=== PATIENT | male | born 1990 | race Caucasian/White ===

== ENCOUNTER 2023-11-19 15:02 | Emergency (ER) | payer BC, SELFPAY ==
[2023-11-19 15:04] VITALS: BP 155/72
--- NOTE | 2023-11-19 15:52 | EDRN ---
Priyanka Lehman PA in to see pt at this time.
--- NOTE | 2023-11-19 15:52 | ED.GENMED ---
History of Present Illness
General
Chief Complaint: Musculo-Skeletal Complaint
Time Seen by Provider: 11/19/23 15:41
History of Present Illness
History of Present Illness:
33-year-old male with no significant past medical history presents to the emergency department for evaluation of severe left-sided low back pain radiating down the left leg. He reports paresthesias and leg weakness when he attempts to ambulate. He
has not taken any medications for the symptoms. He notes that the day prior to onset of symptoms he rode a roller coaster which caused mild back pain and the following day he sneezed which caused severe pain. Denies loss of bladder or bowel
function. No history of lumbar spine disease.
Review of Systems
Review of Systems
Allergies reviewed?: Yes
All Other Systems: ROS reviewed and negative except as documented in HPI and ROS
Phy Exam
Physical Exam
Physical Exam:
GEN: Well appearing, NAD, WDWN
HEENT: Oral mucosa moist, no scleral icterus
Cardiac: Regular rate
Lung: No respiratory distress, no tachypnea
MSK: No gross deformity or injuries. Bilateral lower extremity strength is 5 of 5 in all gallegos and symmetric, patellar reflexes 2+ bilaterally. No sensory level deficits of bilateral lower extremity
Skin: Good color, no pallor or jaundice, no rashes
Neuro: AO x3, moves all extremities freely
Psych: Calm, cooperative
Course
Orders/Labs/Results
Orders:
Orders
11/19/23 15:06
CR Lumbar Spine Comp Min 4 Vw* Urgent
Comment:
Reason For Exam: lower back pain
11/19/23 15:54
Dexamethasone Pf [Decadron] 10 mg PO NOW STA
Ketorolac [Toradol] 30 mg IM NOW STA
11/19/23 16:00
Lidocaine [Lidocaine 4% Patch] 1 patch TOPICAL DAILY
Apply Lidocaine patch(s) to:: low back
Vital Signs
Initial and Last Documented VS:
Initial Vital Signs
Temp Pulse Resp BP Pulse Ox
98.3 F 80 20 155/72 98
11/19/23 15:04 11/19/23 15:04 11/19/23 15:04 11/19/23 15:04 11/19/23 15:04
Last Documented Vital Signs
Temp Pulse Resp BP Pulse Ox
98.3 F 80 20 155/72 98
11/19/23 15:04 11/19/23 15:04 11/19/23 15:04 11/19/23 15:04 11/19/23 15:04
MDM/Problems Addressed
MDM/Problems Addressed:
Likely acute disc herniation evidence of radiculopathy without the weakness. Signs and symptoms of cauda equina. Discussed supportive care, recommend physical therapy if not improving over the weekend. No indication for advanced imaging. X-rays
ordered from triage due to reported injury on the posterior which by my interpretation showed no evidence for fracture
*Critical Care Note
Total Time (30-74mins, 75-104mins- exclusive of procedures): Not Applicable
ED Attending Note
-
Portions of this chart may have been created with voice recognition software.� Occasional wrong word or��sound alike� substitutions may have occurred due to the inherent limitations of voice recognition software.
Discharge Plan
Departure
Patient Disposition: Home (Routine Discharge)
Date of Disposition: 11/19/23
Time of Disposition: 15:54
Patient with high blood pressure during this ER visit?: No
Discharge Problem:
Acute left lumbar radiculopathy
Instructions: Radiculopathy (DC)
Prescriptions:
New
diclofenac sodium 75 mg tablet,delayed release (DR/EC)
75 mg PO BID PRN (Reason: Pain) Qty: 20 0RF
methocarbamol 750 mg tablet
750 - 1,500 mg PO Q8H PRN (Reason: pain) Qty: 30 0RF
Interventions
Interventions:
*Risk Screen - Suicide Last Done: 11/19/23 15:04
*General Assessment Last Done: 11/19/23 15:04
*Neglect/Abuse Screening Last Done: 11/19/23 15:04
ED- Fall Risk Assessment Last Done: 11/19/23 15:53
*ED COVID-19 Vaccine History Last Done: 11/19/23 15:53
*Nursing Disposition Last Done: 11/19/23 16:15
ED-Musculoskeletal Assessment Last Done: 11/19/23 15:57
Discharge Date and Time
Discharge Date/Time: 11/19/23 16:17
Print Language: NIUEAN
[2023-11-19 15:57] VITALS: BMI 29.2
[2023-11-19] MEDS: DECADRON 10 MG PO (16:04)
[2023-11-19] MEDS: TORADOL 30 MG IM (16:04)
[2023-11-19] MEDS: LIDOCAINE 4% PATCH 1 PATCH TOPICAL (16:04)
== END 2023-11-19 16:17 | disposition home or self-care (01) ==
LOC: EMR 15:02
PROVIDERS: EMERGENCY PHYSICIAN Emergency Medicine
DX: M54.16 Radiculopathy, lumbar region (principal)
CPT/HCPCS: 99284; 96372; 72110